=== PATIENT | female | born 1975 | race Hispanic/Latino ===

== ENCOUNTER → 2022-09-12 | Outpatient (CLI) | payer BC, OTHER ==
[~2022-09-12] MED LIST: ASPI-1197 PO; ATOR40TA71 PO; LISI5TAB21 PO; METF-446 PO; METO100T14 PO
== END | disposition home or self-care (01) ==
LOC: RAH 11:09
PROVIDERS: ATTEND Neurological Surgery
DX: M43.22 Fusion of spine, cervical region (principal); Z98.890 Other specified postprocedural states
CPT/HCPCS: 72040